=== PATIENT | male | born 1995 | race Hispanic/Latino ===

== ENCOUNTER 2023-09-20 23:08 | Emergency (ER) | payer OTHER ==
[~2023-09-20] VITALS: Ht 162.6 cm; Wt 56.7 kg
[~2023-09-20 23:08] MED LIST: DIPHENHYDRAMINE25 MG PO; PREDNISONE50 MG PO
[2023-09-20 23:32] VITALS: O2SAT 100
[2023-09-21] MEDS ORDERED: IBUPROFEN 100 MG/5 ML SUSP PO ONE (00:30)
== END 2023-09-21 | disposition left against medical advice (07) ==
LOC: FSED 23:13
DX: M79.605 Pain in left leg (principal)

== ENCOUNTER 2023-12-01 21:52 | Emergency (ER) | payer OTHER ==
[~2023-12-01] VITALS: Ht 162.6 cm; Wt 63.5 kg
[2023-12-01 22:02] VITALS: PULSE 94; RESP 18; TEMP 98.1; O2SAT 98
[2023-12-01] MEDS ORDERED: FLUCONAZOLE100 MG PO (22:39)
== END 2023-12-01 22:45 | disposition home or self-care (01) ==
LOC: FSED 22:04
DX: L29.8 Other pruritus (principal); Z79.2 Long term (current) use of antibiotics
CPT/HCPCS: 99283